=== PATIENT | male | born 1970 | race Caucasian/White ===

== ENCOUNTER 2016-11-17 16:42 | Emergency (ER) | payer OTHER ==
[~2016-11-17] VITALS: Ht 167.6 cm; Wt 64.7 kg
[~2016-11-17 16:42] MED LIST: EMERGEN-C 1,01000 MG PO; LEVO-T75 MCG PO; LO-DOSE ASPIRIN81 M1 PO; NOHOMEMEDS
[2016-11-17 18:01] LABS: MCH 31.4 PG (29.0-34.0); MCHC 35.5 G/DL (30.0-36.0); MCV 88.6 FL (86-99); RBC DIS.WIDTH-CV 11.9 % (11.8-14.6); RBC DIS.WIDTH-SD 38.5 % (39-53); RED BLOOD COUNT 4.74 M/uL (4.00-5.50); WHITE BLOOD COUNT 6.6 K/uL (4.1-10.2)
[2016-11-17 18:12] LABS: CHLORIDE 101 mEq/L (99-109)
[2016-11-17 18:13] LABS: POTASSIUM 3.7 mEq/L (3.7-5.4); SODIUM 138 mEq/L (136-147)
[2016-11-17 18:14] LABS: GLUCOSE 93 mg/dL (70-99)
[2016-11-17 18:16] LABS: ANION GAP 11 MEQ/L (2-14)
[2016-11-17 18:18] LABS: GFR ESTIMATE (CALCULATED) > 59 mL/min/
[2016-11-17 18:19] LABS: UREA NITROGEN (BUN) 8 mg/dL (9-23)
[2016-11-17 18:27] LABS: TROP-I INTERPRETATION NEGATIVE; TROPONIN-I < 0.01 ng/mL (0.0-0.30)
[2016-11-17 18:50] LABS: PLAT.SUFFICIENCY ADEQUATE
[2016-11-17 19:02] LABS: D-DIMER ELISA < 150.00 ng/mLDDU (<230)
[2016-11-17 20:25] LABS: MEAN PLAT.VOLUME 10.5 uM^3 (9.0-12.4); PLATELET COUNT 199 K/uL (156-360)
[2016-11-17 21:18] LABS: TROP-I INTERPRETATION NEGATIVE; TROPONIN-I < 0.01 ng/mL (0.0-0.30)
[2016-11-17 21:35] VITALS: BP 118/76
== END 2016-11-17 21:36 | disposition home or self-care (01) ==
LOC: EME 16:42
PROVIDERS: Emergency Medicine
DX: R07.9 Chest pain, unspecified (principal); E03.9 Hypothyroidism, unspecified; K21.9 Gastro-esophageal reflux disease without esophagitis; Z79.82 Long term (current) use of aspirin
CPT/HCPCS: 71020; 80048; 84484; 85027; 85379; 93005; 99281; 99285